=== PATIENT | male | born 2000 | race Caucasian/White ===

== ENCOUNTER 2021-12-22 19:44 | Emergency (ER) | payer OTHER, SELFPAY ==
[2021-12-22 19:45] VITALS: BP 145/82; PULSE 90; RESP 16; TEMP 37.2; O2SAT 100; BMI 25.7
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
== END 2021-12-22 22:49 | disposition home or self-care (01) ==
PROVIDERS: Emergency Provider Emergency Medicine; PCP Family Medicine; Visit Provider Emergency Medicine
DX: S63.91XA Sprain of unspecified part of right wrist and hand, initial encounter (principal); S63.92XA Sprain of unspecified part of left wrist and hand, initial encounter; V00.141A Fall from scooter (nonmotorized), initial encounter
CPT/HCPCS: 73110; 99283

== ENCOUNTER → 2022-07-30 | Outpatient (CLI) | payer OTHER, SELFPAY ==
--- NOTE | 2022-07-30 17:00 | RAD_ITS ---
INDICATION: LUMBOSACRAL STRAIN, INITIAL ENCOUNTER EXAMINATION/TECHNIQUE: X-RAY - XR Spine Lumbar 2 or 3 Views COMPARISON: None. FINDINGS: VERTEBRAE: Preserved vertebral body height. No fracture. No spondylolisthesis. Preservation of the normal lumbar lordosis. No significant facet arthropathy. DISCS: Disc spaces are maintained. INCLUDED ABDOMEN: Included bowel gas pattern is non-obstructive. RAD/Lumbar Spine 2 or 3 Views IMPRESSION: No evidence of lumbar spinal fracture or spondylolisthesis. Electronically Signed: Avtar Hoffman MD at 17:52 EST ,
== END | disposition home or self-care (01) ==
LOC: RAD 16:53
PROVIDERS: PCP Family Medicine; Visit Provider Family Medicine
DX: S39.012A Strain of muscle, fascia and tendon of lower back, initial encounter (principal)
CPT/HCPCS: 72100

== ENCOUNTER 2022-11-11 07:00 | Outpatient (RCR) | payer OTHER, SELFPAY ==
--- NOTE | 2022-08-08 11:29 | HP.PTEVAL_ITS ---
Patient's Visit Information MARKUS AHUMADA is a 21 year old M referred to Physical Therapy by Dr. Juan Carlos Chavez MD with a diagnosis of LUMBAR STRAIN. Date of Evaluation: 08/08/22 Physical Therapist: Fawad Cheyr, PT, Cert MDT, OCS - Visit Plan Frequency: 2x /Week Duration: 4 Weeks Plan: PT INTERVETIONS SUE EX'S ,MANUAL THERAPY ,PROGRESS TO DLS WHEN PAIN IS BETTER , ANR/FLEXABLITY AND MODALTIES FOR PAIN - Subjective This patient 21 y/o male presents to physical therapy with lumbar pain. Right > left lumbar. Patient developed lumbar pain~ 2 weeks just sitting in recliner developed sharp pain with left lateral shift deformity . Last week unable work could not stand . Patient seen DR henna CLINE provided muscle relaxers and x-rays - , Patient also seen chiropractor and massage therapy. Pain located lumbar radiates to to right. Aggravating factors bending ,lifting ,sitting and standing. Alleviating rest and walking. Coughing/sneezing -. Bowel/bladder -. Denies paresthesia/tingling -. Patient had similar episode one year ago. MEDS muscle relaxer Sleeping good. Patient goals to have no pain. Patient pain affects QOL and function. SOCAIL: single. 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 GAIT: reciprocal pattern with left lateral shift deformity. NEURO: denies paresthesia/tingling ,reflexes L3-4, L4- L5 ,L5-S 1 2/3. PALAPTION: unremarkable. LUMBAR ROM : flexion mod severe loss pain, extension mod/severe pain ,side glides mod loss pain. FLEXABLITY: mod loss due to ANR right with + SLR. MMT: quads 4-/5 limited due to ANR right ,DF/hip/hamstrings 4/5 ,left 4/5 - Special Tests L/S Slump test left side: Negative L/S Slump test right side: Positive L/S Left Straight Leg Raise: Negative L/S Right Straight Leg Raise: Positive Lumbar Standing: Flexion - Mechanical Response: No effect Lumbar Standing: Flexion - Symptoms During Testing: Increases Lumbar Standing: Flexion - Symptoms After Testing: Worse Lumbar Standing: Extension - Mechanical Response: No effect Lumbar Standing: Extension - Symptoms During Testing: Increases Lumbar Standing: Extension - Symptoms After Testing: Worse Lumbar Standing: Right Side Glides - Mechanical Response: No effect Lumbar Standing: Right Side Makinen - Symptoms During Testing: Decreases Lumbar Standing: Right Side Makinen - Symptoms After Testing: No better Lumbar Standing: Left Side Makinen - Mechanical Response: No effect Lumbar Standing: Left Side Makinen - Symptoms During Testing: Increases Lumbar Standing: Left Side Makinen - Symptoms After Testing: No worse Lumbar Lying: Flexion - Mechanical Response: No effect Lumbar Lying: Flexion - Symptoms During Testing: Increases Lumbar Lying: Flexion - Symptoms After Testing: Worse Lumbar Lying: Extension - Mechanical Response: No effect Lumbar Lying: Extension - Symptoms During Testing: Increases Lumbar Lying: Extension - Symptoms After Testing: No worse Comments:: REIL WITH HIPS TO LEFT - Balance/Special Test Scores Oswestry Low Back Score: 30 - Goals Goal 1:: Patient to be I with HEP for lumbar Goal Time Frame: 4-6 Weeks Goal 2:: Patient to improve posture/body mechanics for job demands 90% Goal Time Frame: 4-6 Weeks Goal 3:: Patient to demonstrate 75 % improvement with decrease symptoms and improved function Goal Time Frame: 4-6 Weeks Goal 4:: Patient to resolve ANR to bend correctly and correct left lateral shift deformity for gait Goal Time Frame: 4-6 Weeks Goal 5:: Patient to improve 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 ROM 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 Goal Time Frame: 4-6 Weeks Goal 6:: Patient to improve back oswestry score by 5 points to improve QOL Goal Time Frame: 4-6 Weeks - Rehabilitation Potential Physical Therapy Diagnosis: This patient has derangement above knee with possible with Disc due to pain worse with positioning sitting and motion test ,+ ANR/SLR right worse with flexion ,bending and shift deformity to left thus will benefit from skilled PT Rehabilitation Potential: Good - Anticipated Interventions Patient/Client Instruction: Educate patient on: Condition, Plan of Care For the Purpose of:: To decrease pain, To increase ROM, To improve muscle performance and motor function, To increase tolerance to activity /condition/position, To improve ability of physical actions for home/community/work/leisure, To improve health of tissue, To reduce risk of recurrence, To prevent re-injury Therapeutic Exercise to Include: Strength training, Endurance training, Balance training, Body mechanics, Postural training, Flexibilty training, Dynamic Lumbar Stabilization, Sue Exercises For the Purpose of:: To decrease pain, To increase ROM, To improve muscle performance and motor function, To increase tolerance to activity/condition/position, To improve ability of physical actions for home/community/work/leisure, To improve health of tissue, To decrease soft tissue restriction, To increase flexibility/ROM, To prevent re-injury Manual Therapy Techniques to Include: Mobilization For the Purpose of:: To decrease pain, To increase ROM, To improve muscle performance and motor function, To increase tolerance to ac tivity/condition/position, To improve health of tissue, To decrease soft tissue restriction TENS: Yes IF ES: Yes Cryotherapy (ice pack, ice massage): Yes Thermo therapy (hot pack): Yes Ultrasound (thermal/non thermal): Yes For the Purpose of:: To decrease pain, To increase ROM, To improve nutrient delivery to tissue, To increase oxygenation perfusion, To improve health of tissue, To decrease soft tissue restriction Thank you for the opportunity to evaluate your patient. For Medicare and Medicare HMO plans, please review the plan of care and approve it. It will need to be FAXED BACK to us at [phone] for Medicare purposes. For Medicare only, by signing this I certify the plan of care. Please let me know if there are questions or concerns regarding this plan of care. Physician Signature: Date:
--- NOTE | 2022-11-11 07:37 | HP.PTDCSUM ---
It has been my pleasure to treat MARKUS AHUMADA referred by Dr. Juan Carlos Chavez MD, with the diagnosis of LUMBAR STRAIN for a total of 18 visit(s). Discharge Date: 11/11/22 Please see the following information for a summary of their discharge status. Subjective: Doing well Bilateral Back Pain Intensity (Out of 10): 0 % Improvement: 75 Objective/Function: GAIT: reciprocal pattern. NEURO: intact -SLR: POSTURE: mild shift. PALPATION: none. LUMBAR ROM: FLEXION/EXT WFL LOSS. 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 Thank you for the referral of this patient. Sincerely, Fawad Chery, PT, Cert MDT, OCS Balance/Gait/Functional tests - Balance/Special Test Scores Oswestry Low Back Score: 6
== END 2022-11-11 19:00 | disposition home or self-care (01) ==
LOC: PT 07:00
PROVIDERS: PCP Family Medicine; Referring Provider Family Medicine; Visit Provider Family Medicine
DX: S39.012A Strain of muscle, fascia and tendon of lower back, initial encounter (principal)
CPT/HCPCS: 97014; 97110; 97161; 97530; G0283